=== PATIENT | male | born 1995 | race Caucasian/White ===

== ENCOUNTER 2020-09-19 13:30 | Emergency (ER) | payer OTHER ==
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
== END 2020-09-19 21:27 | disposition expired ==
LOC: EDBD 13:30 → VM.ED 13:30
DX: I46.9 Cardiac arrest, cause unspecified (principal)
CPT/HCPCS: 31500; 92950; 99285; 99285-25